=== PATIENT | male | born 1990 | race Two or more races ===

== ENCOUNTER 2021-08-13 18:15 | Emergency (ER) | payer SELFPAY ==
[~2021-08-13] VITALS: Ht 170.2 cm; Wt 74.8 kg
[2021-08-13 18:23] VITALS: BP 147/107
== END 2021-08-13 18:42 | disposition left against medical advice (07) ==
LOC: ER 18:15
DX: Z53.21 Procedure and treatment not carried out due to patient leaving prior to being seen by health care provider (principal)